=== PATIENT | female | born 1975 | race Caucasian/White ===

== ENCOUNTER 2017-05-20 05:45 | Emergency (ER) | payer MEDICAID ==
[2017-05-20 05:53] VITALS: BP 169/105
--- NOTE | 2017-05-20 06:05 | ED Physician Documentation ---
PD HPI HEENT - Stated complaint Stated Complaint: LT EAR PLUGGED - Chief complaint Chief Complaint: Heent - History obtained from History obtained from: Patient, Family - History of Present Illness Timing - onset: How many days ago (3) Timing - details: Gradual onset, Still present Location: Left ear Associated symptoms: Congestion. No: Fever Similar symptoms before: Has not had sx before Recently seen: Not recently seen - Additional information Additional information: patient is a 42 year old female with no significant past medical history who is presenting to the emergency department for left ear discharge. patient states that it has been going on for the last three days. patient denies any underwater exposure but does report that she recently started a new job at [employer]. Review of Systems Constitutional: denies: Fever, Chills Eyes: denies: Decreased vision, Photophobia Ears: reports: Drainage/discharge. 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 - Present Medications Home Medications: Ambulatory Orders Medication Instructions Recorded Confirmed Ciproflox/Dexameth Otic Drops 4 drops OT BID #1 bottle 05/20/17 [Ciprodex] - Allergies Allergies/Adverse Reactions: Allergies Allergy/AdvReac Type Severity Reaction Status Date / Time erythromycin base Allergy Intermediate Rash Verified 05/20/17 05:52 [Erythromycin Base] Penicillins Allergy Intermediate Hives Verified 05/20/17 05:52 Sulfa (Sulfonamide Allergy Intermediate Respiratory Verified 05/20/17 05:52 Antibiotics) - Social History Does the pt smoke?: Yes Smoking Status: Current every day smoker Does the pt drink ETOH?: No Does the pt have substance abuse?: No - Immunizations Immunizations are current?: No Immunizations: TDAP >10years/unknown - POLST Patient has POLST: No PD ED PE NORMAL - General General: Alert and oriented X 3, No acute distress, Well developed/nourished - HEENT HEENT: Atraumatic, PERRL, Moist mucous membranes - Neck Neck: No JVD - Cardiac Cardiac: RRR - Respiratory Respiratory: No respiratory distress - Abdomen Abdomen: Non distended - Derm Derm: Normal color - Extremities Extremities: No deformity - Neuro Neuro: Alert and oriented X 3, No motor deficit, Normal speech Eye Opening: Spontaneous - Psych Psych: Normal mood PD ED PE EXPANDED - HEENT HEENT: Other (purulent discharge in left auditory canal) Results - Vitals Vitals: Vital Signs - 24 hr 05/20/17 05:49 Temperature 36.4 C L Heart Rate 78 Respiratory 16 Rate Blood Pressure 169/105 H O2 Saturation 100 Oxygen O2 Source Room air PD MEDICAL DECISION MAKING - ED course Complexity details: reviewed old records, reviewed results, re-evaluated patient , considered differential, d/w patient, d/w family ED course: Patient was seen and examined at bedside. Patient's findings were consistent with otitis media. Prescriptions were written. patient required no further work up and was stable for discharge with outpatient follow up. Departure - Departure Disposition: 01 Home, Self Care Clinical Impression: Otitis externa Condition: Good Instructions: ED Otitis Externa Follow-Up: Mary Hutchinson ARNP [Primary Care Provider] - Within 1 week Prescriptions: Ciproflox/Dexameth Otic Drops [Ciprodex] 4 drops OT BID #1 bottle Comments: Your symptoms today are being caused by an external ear infection. you will be started on antibiotic ear drops. You should use them twice a day until your symptoms resolve. You should follow up with your doctor this week for a recheck. Discharge Date/Time: 05/20/17 06:07
== END 2017-05-20 06:07 | disposition home or self-care (01) ==
LOC: ED 05:45
DX: F17.200 Nicotine dependence, unspecified, uncomplicated (principal); H60.92 Unspecified otitis externa, left ear
CPT/HCPCS: 99283

== ENCOUNTER 2018-01-17 07:30 | Emergency (ER) | payer MEDICAID ==
--- NOTE | 2018-01-17 07:45 | ED Physician Documentation ---
PD HPI OPHTHO - Stated complaint Stated Complaint: BILAT EYE PX/DISCHARGE - Chief complaint Chief Complaint: Heent - History obtained from History obtained from: Patient - History of Present Illness Timing - onset: Other (Since May she has been having ongoing feeling of plugging in her left ear with decreased hearing and some drainage. There is really no pain but occasionally has a lump in the postauricular area. Secondly she has 2 days of bilateral eye redness with drainage. There is no visual deficit.) Review of Systems Constitutional: denies: Fever, Chills Eyes: reports: Discharge, Irritation. denies: Loss of vision, Decreased vision, Photophobia Ears: reports: Loss of hearing, Drainage/discharge. 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 - Present Medications Home Medications: Ambulatory Orders Medication Instructions Recorded Confirmed Ciproflox/Dexameth Otic Drops 4 drops OT BID #1 bottle 05/20/17 [Ciprodex] Ciproflox/Dexameth Otic Drops 4 drops OT BID #1 bottle 01/17/18 [Ciprodex] Gentamicin 0.3% Ophth Drops 1 drops OPTH QID 7 Days #1 bottle 01/17/18 [Garamycin] - Allergies Allergies/Adverse Reactions: Allergies Allergy/AdvReac Type Severity Reaction Status Date / Time erythromycin base Allergy Intermediate Rash Verified 05/20/17 05:52 [Erythromycin Base] Penicillins Allergy Intermediate Hives Verified 05/20/17 05:52 Sulfa (Sulfonamide Allergy Intermediate Respiratory Verified 05/20/17 05:52 Antibiotics) - Social History Does the pt smoke?: Yes Smoking Status: Current every day smoker Does the pt drink ETOH?: No Does the pt have substance abuse?: No - Immunizations Immunizations are current?: No Immunizations: TDAP >10years/unknown - POLST Patient has POLST: No PD ED PE NORMAL - Vitals Vital signs reviewed: Yes - General General: Alert and oriented X 3, No acute distress - HEENT HEENT: Other (She has bilateral conjunctivitis with purulent drainage, right greater than left. Oropharynx is normal. Right TM and canal are normal. She has inflammation and purulent drainage from the left canal consistent with external otitis.) - Neck Neck: Supple, no meningeal sign, No bony TTP, No adenopathy - Neuro Neuro: Alert and oriented X 3, Normal speech - Psych Psych: Normal mood, Normal affect Results - Vitals Vitals: Vital Signs - 24 hr 01/17/18 07:33 Temperature 36.7 C Heart Rate 81 Respiratory 18 Rate Blood Pressure 198/109 H O2 Saturation 100 Oxygen O2 Source Room air Departure - Departure Disposition: 01 Home, Self Care Clinical Impression: Otitis externa Qualifiers: Otitis externa type: swimmer's ear Chronicity: chronic Laterality: left Qualified Code(s): H60.332 - Swimmer's ear, left ear Conjunctivitis Qualifiers: Conjunctivitis type: acute Acute conjunctivitis type: unspecified Laterality: bilateral Qualified Code(s): H10.33 - Unspecified acute conjunctivitis, bilateral Condition: Good Record reviewed to determine appropriate education?: Yes Instructions: ED Otitis Externa Prescriptions: Ciproflox/Dexameth Otic Drops [Ciprodex] 4 drops OT BID #1 bottle Gentamicin 0.3% Ophth Drops [Garamycin] 1 drops OPTH QID 7 Days #1 bottle Comments: Your blood pressure was elevated today on check into the emergency department. This does not mean that you have hypertension, it is a common phenomenon to come to the emergency department and have elevated blood pressure. I recommend that you see your primary care physician within the week to have it rechecked when you are feeling better. If your ear is not better after course of antibiotics talk with your doctor about a referral to an ENT physician.
[2018-01-17 07:52] VITALS: BP 177/107
== END 2018-01-17 07:52 | disposition home or self-care (01) ==
LOC: ED 07:30
DX: H60.332 Swimmer's ear, left ear (principal); H10.33 Unspecified acute conjunctivitis, bilateral; R03.0 Elevated blood-pressure reading, without diagnosis of hypertension; F17.200 Nicotine dependence, unspecified, uncomplicated
CPT/HCPCS: 99283

== ENCOUNTER 2019-01-04 16:38 | Emergency (ER) | payer SELFPAY ==
[2019-01-04 17:10] LABS: BILIRUBIN,URINE NEGATIVE (NEGATIVE); GLUCOSE, URINE (UA) NEGATIVE (NEGATIVE); KETONES,URINE (UA) NEGATIVE (NEGATIVE); LEUKOCYTE ESTERASE, URINE MODERATE (NEGATIVE); NITRITE,URINE POSITIVE (NEGATIVE); OCCULT BLOOD,URINE MODERATE (NEGATIVE); PROTEIN,URINE 30 mg/dL (NEGATIVE); UROBILINOGEN,URINE 0.2 (NORMAL) E.U./dL (NORMAL)
[2019-01-04 17:12] LABS: CLARITY,URINE CLOUDY (CLEAR)
[2019-01-04 17:13] LABS: HCG UR QUAL NEGATIVE
[2019-01-04 17:21] LABS: BACTERIA,URINE Moderate /HPF (None Seen); SQUAMOUS EPITHELIAL CELL,UR NONE SEEN (<= Few)
[2019-01-04] MEDS ORDERED: HYDROcod/ACETAM 5/325 MG TABLET PO STA (19:14)
[2019-01-04] MEDS ORDERED: LIDOCAINE 1% 2 ML VIAL MC ONE (19:14)
[2019-01-04] MEDS ORDERED: cefTRIAXone 1 GM VIAL IM STA (19:14)
[2019-01-04] MEDS ORDERED: ONDANSETRON ODT 4 MG TABLET TL STA (19:14)
--- NOTE | 2019-01-04 19:16 | ED Physician Documentation ---
PD HPI FEMALE - Stated complaint Stated Complaint: FEM - Chief complaint Chief Complaint: UTI - History obtained from History obtained from: Patient - History of Present Illness Timing - onset: Other (For 3 days she had urinary burning and frequency, now with left flank pain, some nausea but no vomiting. She also notes 3 years of inability to hear from the left ear.) Review of Systems Constitutional: reports: Fatigue. 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 - Present Medications Home Medications: Ambulatory Orders Medication Instructions Recorded Confirmed Ciproflox/Dexameth Otic Drops 4 drops OT BID #1 bottle 05/20/17 [Ciprodex] Ciproflox/Dexameth Otic Drops 4 drops OT BID #1 bottle 01/17/18 [Ciprodex] Gentamicin 0.3% Ophth Drops 1 drops OPTH QID 7 Days #1 bottle 01/17/18 [Garamycin] Cefdinir 300 mg PO BID #20 capsule 01/04/19 Hydrocodone/Acetaminophen 1 - 2 each PO Q6H PRN #14 tablet 01/04/19 [Hydrocodon-Acetaminophen 5-325] Ondansetron Odt [Zofran] 4 mg TL Q6H PRN #10 tablet 01/04/19 - Allergies Allergies/Adverse Reactions: Allergies Allergy/AdvReac Type Severity Reaction Status Date / Time erythromycin base Allergy Intermediate Rash Verified 05/20/17 05:52 [Erythromycin Base] Penicillins Allergy Intermediate Hives Verified 05/20/17 05:52 Sulfa (Sulfonamide Allergy Intermediate Respiratory Verified 05/20/17 05:52 Antibiotics) - Social History Does the pt smoke?: Yes Smoking Status: Current every day smoker Does the pt drink ETOH?: No Does the pt have substance abuse?: No - Immunizations Immunizations are current?: No Immunizations: TDAP >10years/unknown - POLST Patient has POLST: No PD ED PE NORMAL - Vitals Vital signs reviewed: Yes - General General: Alert and oriented X 3, No acute distress - HEENT HEENT: Other (There is a chronic appearing perforation of the left TM) - Abdomen Abdomen: Soft, Non tender - Back Back: Other (Mild left CVA tenderness) - Neuro Neuro: Alert and oriented X 3, Normal speech Results - Vitals Vitals: Vital Signs - 24 hr 01/04/19 16:50 Temperature 36.9 C Heart Rate 94 Respiratory 20 Rate Blood Pressure 171/94 H O2 Saturation 100 Oxygen O2 Source Room air - Labs Labs: Laboratory Tests 01/04/19 01/04/19 17:00 17:00 Urine Color YELLOW Urine Clarity CLOUDY Urine pH 6.0 Ur Specific [place] 1.020 1.020 Urine Protein 30 H Urine Glucose (UA) NEGATIVE Urine Ketones NEGATIVE Urine Occult Blood MODERATE H Urine Nitrite POSITIVE H Urine Bilirubin NEGATIVE Urine Urobilinogen 0.2 (NORMAL) Ur Leukocyte Esterase MODERATE H Urine RBC 6-10 H Urine WBC >25 H Ur Squamous Epith Cells NONE SEEN Urine Bacteria Moderate H Ur Microscopic Review INDICATED Urine Culture Comments INDICATED Urine HCG, Qual NEGATIVE PD MEDICAL DECISION MAKING - ED course ED course: This is a 43-year-old woman who presents with signs and symptoms of pyelonephritis with positive urinalysis for which she is administered Rocephin IM and a third generation oral cephalosporin. Also referred to ENT for the chronic perforation of the left TM. Departure - Departure Disposition: 01 Home, Self Care Clinical Impression: Pyelonephritis Condition: Good Record reviewed to determine appropriate education?: Yes Instructions: Pyelonephritis Dc Prescriptions: Cefdinir 300 mg PO BID #20 capsule Hydrocodone/Acetaminophen [Hydrocodon-Acetaminophen 5-325] 1 - 2 each PO Q6H PRN #14 tablet PRN Reason: pain Ondansetron Odt [Zofran] 4 mg TL Q6H PRN #10 tablet PRN Reason: Nausea / Vomiting Comments: We will culture your urine, the results should be done in 48-72 hours. If an antibiotic change is necessary we will call you. Return if worse in the meantime, especially if you develop increasing flank pain, fevers, or cannot keep down the medication. 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
[2019-01-04 19:47] VITALS: BP 147/86
== END 2019-01-04 19:49 | disposition home or self-care (01) ==
LOC: ED 16:38
DX: N12 Tubulo-interstitial nephritis, not specified as acute or chronic (principal); H72.92 Unspecified perforation of tympanic membrane, left ear; I10 Essential (primary) hypertension; F17.200 Nicotine dependence, unspecified, uncomplicated
CPT/HCPCS: 81001; 81025; 87086; 87181; 96372; 99283; A9270; Q0162; 81003

== ENCOUNTER 2019-01-17 06:31 | Outpatient (CLI) | payer SELFPAY | END 2019-01-17 06:32 | disposition EMS.NT | LOC: EMS 06:31 | PROVIDERS: ATTEND Surgery | DX: R10.9 Unspecified abdominal pain (principal) ==

== ENCOUNTER 2019-05-24 18:49 | Outpatient (CLI) | payer SELFPAY | END 2019-05-24 23:59 | disposition critical access hospital (66) | LOC: EMS 18:49 | PROVIDERS: ATTEND Surgery | DX: R10.9 Unspecified abdominal pain (principal); R39.9 Unspecified symptoms and signs involving the genitourinary system | CPT/HCPCS: A0425; A0429 ==

== ENCOUNTER 2019-05-24 19:07 | Emergency (ER) | payer SELFPAY ==
[2019-05-24 19:14] VITALS: BP 184/110
[2019-05-24 19:21] LABS: BILIRUBIN,URINE NEGATIVE (NEGATIVE); GLUCOSE, URINE (UA) NEGATIVE (NEGATIVE); KETONES,URINE (UA) NEGATIVE (NEGATIVE); LEUKOCYTE ESTERASE, URINE SMALL (NEGATIVE); NITRITE,URINE NEGATIVE (NEGATIVE); OCCULT BLOOD,URINE TRACE-INTA (NEGATIVE); PROTEIN,URINE NEGATIVE (NEGATIVE); UROBILINOGEN,URINE 0.2 (NORMAL) E.U./dL (NORMAL)
[2019-05-24] MEDS ORDERED: NITROFURANTOIN MACRO 100 MG CAPSULE PO ONE (20:22)
[2019-05-24] MEDS ORDERED: PHENAZOPYRIDINE 100 MG TABLET PO ONE (20:22)
--- NOTE | 2019-05-24 21:39 | ED Physician Documentation ---
PD HPI FEMALE - Stated complaint Stated Complaint: BLADDER PAIN - Chief complaint Chief Complaint: UTI - History obtained from History obtained from: Patient - History of Present Illness Timing - onset: How many weeks ago (1) Timing - details: Gradual onset, Waxing and waning Associated symptoms: No: Fever Similar symptoms before: Diagnosis (UTI) Recently seen: Not recently seen - Additional information Additional information: c/o one week of urinary frequency and dysuria c/w previous UTIs . 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 - Present Medications Home Medications: Ambulatory Orders Medication Instructions Recorded Confirmed Ciproflox/Dexameth Otic Drops 4 drops OT BID #1 bottle 05/20/17 [Ciprodex] Ciproflox/Dexameth Otic Drops 4 drops OT BID #1 bottle 01/17/18 [Ciprodex] Gentamicin 0.3% Ophth Drops 1 drops OPTH QID 7 Days #1 bottle 01/17/18 [Garamycin] Cefdinir 300 mg PO BID #20 capsule 01/04/19 Hydrocodone/Acetaminophen 1 - 2 each PO Q6H PRN #14 tablet 01/04/19 [Hydrocodon-Acetaminophen 5-325] Ondansetron Odt [Zofran] 4 mg TL Q6H PRN #10 tablet 01/04/19 - Allergies Allergies/Adverse Reactions: Allergies Allergy/AdvReac Type Severity Reaction Status Date / Time erythromycin base Allergy Intermediate Rash Verified 05/24/19 19:10 [Erythromycin Base] Penicillins Allergy Intermediate Hives Verified 05/24/19 19:10 Sulfa (Sulfonamide Allergy Intermediate Respiratory Verified 05/24/19 19:10 Antibiotics) - Social History Does the pt smoke?: Yes Smoking Status: Current every day smoker Does the pt drink ETOH?: No Does the pt have substance abuse?: No - Immunizations Immunizations are current?: No Immunizations: TDAP >10years/unknown - POLST Patient has POLST: No PD ED PE NORMAL - Vitals Vital signs reviewed: Yes - General General: Alert and oriented X 3, No acute distress, Well developed/nourished - Abdomen Abdomen: Normal bowel sounds, Soft, Non tender - Back Back: No CVA TTP - Derm Derm: Normal color, Warm and dry Results - Vitals Vitals: Vital Signs - 24 hr 05/24/19 19:11 Temperature 36.8 C Heart Rate 78 Respiratory 14 Rate Blood Pressure 184/110 H O2 Saturation 99 Oxygen O2 Source Room air - Labs Labs: Laboratory Tests 05/24/19 05/24/19 19:13 19:13 Urine Color YELLOW Urine Clarity CLEAR Urine pH 6.0 Ur Specific [place] 1.010 1.010 Urine Protein NEGATIVE Urine Glucose (UA) NEGATIVE Urine Ketones NEGATIVE Urine Occult Blood TRACE-INTA Urine Nitrite NEGATIVE Urine Bilirubin NEGATIVE Urine Urobilinogen 0.2 (NORMAL) Ur Leukocyte Esterase SMALL H Urine RBC 0-5 Urine WBC >25 H Ur Squamous Epith Cells MANY Squamous H Urine Bacteria Few Ur Microscopic Review INDICATED Urine Culture Comments NOT INDICATED Urine HCG, Qual NEGATIVE PD MEDICAL DECISION MAKING - ED course Complexity details: reviewed results, considered differential, d/w patient ED course: UA c/w UTI. NAD and unremarkable exam including no CVAT and normal abdominal exam. Will treat with macrobid, dose in ED with pyridium and rx for macrobid Departure - Departure Disposition: 01 Home, Self Care Clinical Impression: Urinary tract infection Qualifiers: Urinary tract infection type: acute cystitis Hematuria presence: with hematuria Qualified Code(s): N30.01 - Acute cystitis with hematuria Condition: Stable Comments: see handwritten instructions and rx (macrobid) ([employer] downtime) Discharge Date/Time: 05/24/19 21:35
[2019-05-24 21:42] LABS: HCG UR QUAL NEGATIVE
[2019-05-24 21:45] LABS: CLARITY,URINE CLEAR (CLEAR); RBC,URINE 0-5 /HPF (0-5)
[2019-05-24 21:46] LABS: BACTERIA,URINE Few /HPF (None Seen); SQUAMOUS EPITHELIAL CELL,UR MANY Squamous (<= Few)
== END 2019-05-24 21:35 | disposition home or self-care (01) ==
LOC: EDUNIT# → ED 19:07
DX: N30.01 Acute cystitis with hematuria (principal); I10 Essential (primary) hypertension; F17.200 Nicotine dependence, unspecified, uncomplicated
CPT/HCPCS: 81001; 81025; 99282; 99283; A9270; 81003; 87086

== ENCOUNTER 2021-03-15 13:30 | Emergency (ER) | payer MEDICAID ==
--- NOTE | 2021-03-15 14:49 | XRAY Report ---
PROCEDURE: Humerus LT INDICATIONS: Trauma TECHNIQUE: 2 views of the humerus were acquired. COMPARISON: None FINDINGS: Bones: No fractures or dislocations. No suspicious bony lesions. Soft tissues: No suspicious soft tissue calcifications. IMPRESSION: No gross acute humeral fracture or dislocation. Reviewed by: Wolf Brenner MD on 03/15/2021 2:48 PM PST Approved by: Wolf Brenner MD on 03/15/2021 2:48 PM PST Station ID: [id number]
[2021-03-15] MEDS ORDERED: HYDROcod/ACETAM 5/325 MG TABLET PO STA (15:02)
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
[2021-03-15 15:30] VITALS: BP 143/98
== END 2021-03-15 15:30 | disposition home or self-care (01) ==
LOC: ED 13:30
DX: S40.012A Contusion of left shoulder, initial encounter (principal); V19.9XXA Pedal cyclist (driver) (passenger) injured in unspecified traffic accident, initial encounter; F17.200 Nicotine dependence, unspecified, uncomplicated; I10 Essential (primary) hypertension; Y93.55 Activity, bike riding
CPT/HCPCS: 73060; 99283; A9270

== ENCOUNTER 2021-06-27 16:01 | Emergency (ER) | payer MEDICAID ==
[2021-06-27 16:13] VITALS: BP 186/105
[2021-06-27] MEDS ORDERED: predniSONE 20 MG TABLET PO STA (16:39)
--- NOTE | 2021-06-27 16:42 | ED Physician Documentation ---
PD HPI HEENT - Stated complaint Stated Complaint: LT EAR PX - Chief complaint Chief Complaint: Heent - History obtained from History obtained from: Patient - Additional information Additional information: The patient comes to the emergency department chief complaint of left ear pain and discomfort for the last couple of days. She states she has felt is that there is some drainage in there. The patient denies any fevers or chills. No facial swelling or redness. No mandibular pain. No other complaints at this time. Review of Systems Ten Systems: 10 systems reviewed and negative Constitutional: reports: Reviewed and negative Eyes: reports: Reviewed and negative Ears: reports: Ear pain Nose: reports: Reviewed and negative Throat: reports: Reviewed and negative Cardiac: reports: Reviewed and negative Respiratory: reports: Reviewed and negative GI: reports: Reviewed and negative : reports: Reviewed and negative Skin: reports: Reviewed and negative Musculoskeletal: reports: Reviewed and negative Neurologic: reports: Reviewed and negative Psychiatric: reports: Reviewed and negative Endocrine: reports: Reviewed and negative Immunocompromised: reports: Reviewed and negative PD PAST MEDICAL HISTORY - Past Medical History Cardiovascular: Hypertension Respiratory: None Neuro: None Endocrine/Autoimmune: None GI: None COIL FORMER: None : None HEENT: None Psych: None Musculoskeletal: None Derm: None - Past Surgical History Past Surgical History: Yes /COIL FORMER: section, Tubal ligation - Present Medications Home Medications: Ambulatory Orders Medication Instructions Recorded Confirmed Ciproflox/Dexameth Otic Drops 4 drops OT BID #1 bottle 05/20/17 [Ciprodex] Ciproflox/Dexameth Otic Drops 4 drops OT BID #1 bottle 01/17/18 [Ciprodex] Gentamicin 0.3% Ophth Drops 1 drops OPTH QID 7 Days #1 bottle 01/17/18 [Garamycin] Cefdinir 300 mg PO BID #20 capsule 01/04/19 Hydrocodone/Acetaminophen 1 - 2 each PO Q6H PRN #14 tablet 01/04/19 [Hydrocodon-Acetaminophen 5-325] Ondansetron Odt [Zofran] 4 mg TL Q6H PRN #10 tablet 01/04/19 HYDROcod/ACETAM 5/325 [[place] 5/325] 1 tab PO BID PRN #8 tablet 03/15/21 Ibuprofen [Motrin] 600 mg PO Q6H PRN #30 tab 03/15/21 predniSONE [Deltasone] 40 mg PO DAILY 3 Days #6 tablet 06/27/21 - Allergies Allergies/Adverse Reactions: Allergies Allergy/AdvReac Type Severity Reaction Status Date / Time erythromycin base Allergy Intermediate Rash Verified 06/27/21 16:13 [Erythromycin Base] Penicillins Allergy Intermediate Hives Verified 06/27/21 16:13 Sulfa (Sulfonamide Allergy Intermediate Respiratory Verified 06/27/21 16:13 Antibiotics) - Social History Does the pt smoke?: Yes Smoking Status: Current every day smoker Does the pt drink ETOH?: No Does the pt have substance abuse?: No - Immunizations Immunizations are current?: No Immunizations: TDAP >10years/unknown - POLST Patient has POLST: No PD ED PE NORMAL - Vitals Vital signs reviewed: Yes - General General: Alert and oriented X 3, No acute distress, Well developed/nourished - HEENT HEENT: Atraumatic, PERRL, EOMI, Moist mucous membranes, Other (Left external auditory canal is mildly edematous, erythematous, With no drainage. 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 We have discussed antibiotic drops and the usual indications for follow- up and return. Departure - Departure Disposition: 01 Home, Self Care Clinical Impression: Acute ear pain Qualifiers: Laterality: left Qualified Code(s): H92.02 - Otalgia, left ear Acute serous otitis media Qualifiers: Laterality: left Recurrence: non-recurrent Qualified Code(s): H65.02 - Acute serous otitis media, left ear Condition: Stable Instructions: ED Otitis Media Serous Adult Prescriptions: predniSONE [Deltasone] 40 mg PO DAILY 3 Days #6 tablet Comments: You have a mild amount of moisture in your ear canal but actually, it looks pretty good otherwise. You do have some fluid and debris behind your eardrum, but the eardrum is clear and is not red, thickened, or bulging. There is no evidence of infection of your middle or external ear. You may use the steroids to help bring down inflammation and see if this helps to clear up the pain in the fluid behind your eardrum. Please follow-up with ear nose throat specialist if you do not notice any improvement in the next week. Discharge Date/Time: 06/27/21 16:51
== END 2021-06-27 16:51 | disposition home or self-care (01) ==
LOC: ED 16:01
DX: H65.02 Acute serous otitis media, left ear (principal); F17.200 Nicotine dependence, unspecified, uncomplicated
CPT/HCPCS: 99282; J7512